=== PATIENT | male | born 1990 | race African-American/Black ===

== ENCOUNTER 2023-07-14 14:39 | Emergency (ER) | payer SELFPAY ==
[~2023-07-14] VITALS: Ht 180.3 cm; Wt 62.0 kg
[2023-07-14 14:42] VITALS: BP 111/67; TEMP 98.8; O2SAT 100
[2023-07-14] MEDS: BACITRACIN ZINC OINT UDPKT TOP ONE (15:30)
[2023-07-14] MEDS: LIDOCAINE HCL/PF 1% 10 MG/ML 5ML VIAL INFIL ONE (15:30)
[2023-07-14] MEDS: TETANUS, DIPHTHERIA, PERTUSSIS VAC/PF 0.5ML (>10YR OLD) IM ONE (16:08)
[2023-07-14] MEDS ORDERED: BO1 TP (17:21)
[2023-07-14 17:41] VITALS: PULSE 94; RESP 16
== END 2023-07-14 17:42 | disposition home or self-care (01) ==
LOC: ER 14:39
DX: S61.214A Laceration without foreign body of right ring finger without damage to nail, initial encounter (principal); W26.0XXA Contact with knife, initial encounter; Y93.89 Activity, other specified; Y92.89 Other specified places as the place of occurrence of the external cause; Y99.8 Other external cause status
CPT/HCPCS: 12002; 99282; J3490; Z7610 ×2

== ENCOUNTER 2023-08-06 17:06 | Emergency (ER) | payer SELFPAY ==
[~2023-08-06] VITALS: Ht 180.3 cm; Wt 63.0 kg
[~2023-08-06 17:06] MED LIST: BO1 TP
[2023-08-06 17:20] VITALS: BP 100/52; PULSE 63; RESP 16; TEMP 97.6; O2SAT 100
== END 2023-08-06 18:30 | disposition left against medical advice (07) ==
LOC: ER 17:06
DX: Z48.02 Encounter for removal of sutures (principal); Z53.21 Procedure and treatment not carried out due to patient leaving prior to being seen by health care provider